=== PATIENT | female | born 1975 | race Caucasian/White ===

== ENCOUNTER 2017-11-20 07:57 | Day surgery (SDC) | payer OTHER ==
[~2017-11-20] VITALS: Ht 157.5 cm; Wt 73.0 kg
[~2017-11-20 07:57] MED LIST: ELAVIL10 MG PO; LIPITOR10 MG PO; NAPROSYN500 MG PO; NORCO 5/3251 TABLET PO; OMEPRAZOLE40 M1 PO
[2017-11-20 08:12] VITALS: BP 11/73
[2017-11-20 11:20] VITALS: BP 141/75
[2017-11-20 12:15] VITALS: BP 104/56
[2017-11-20 13:35] VITALS: BP 109/55
== END 2017-11-20 14:00 | disposition home or self-care (01) ==
LOC: SDC 07:57
DX: N92.1 Excessive and frequent menstruation with irregular cycle (principal); N80.0 Endometriosis of uterus; N94.6 Dysmenorrhea, unspecified; K21.9 Gastro-esophageal reflux disease without esophagitis; E78.00 Pure hypercholesterolemia, unspecified
CPT/HCPCS: 88305; J0690; J1170; J1885; J2250; J2405; J2765